=== PATIENT | female | born 1935 | race Caucasian/White ===

== ENCOUNTER 2019-07-16 09:00 | Inpatient (IN) | payer OTHER ==
[~2019-07-16] VITALS: Ht 157.5 cm; Wt 71.6 kg
[~2019-07-16 09:00] MED LIST: ACET-66 PO; ATOR40TA71 PO; FAMO40TA7 PO; FENO160T16 PO; FISH1CAP63 PO; FURO40TA5 PO; ISOS20TA7 PO; LISI-613 PO; MAGN400T40 PO; METO-409 PO; OMEP20TA25 PO
[2019-07-16 09:25] LABS: BASOPHILS % (AUTO) 0.3 % (0.0-5.0); EOSINOPHILS % (AUTO) 5.6 % (0.0-8.0); HEMATOCRIT 43.3 % (36-48); LYMPHOCYTES % (AUTO) 24.7 % (21.0-51.0); MEAN CORPUSCULAR HEMOGLOBIN 26.2 pg (27.0-33.0); MEAN CORPUSCULAR VOLUME 79.3 fL (79-99); MONOCYTES % (AUTO) 18.6 % (3.0-13.0); NEUTROPHILS % (AUTO) 50.8 % (40.0-77.0); NUCLEATED RED BLOOD CELLS 0.1 % (0.0-0.19); PLATELET COUNT (AUTO) 136 K/uL (130-400); RED BLOOD CELL COUNT(AUTO) 5.46 MIL/uL (4.00-5.50); RED CELL DISTRIBUTION WIDTH 17.1 % (11.0-15.5)
[2019-07-16 09:42] LABS: BILIRUBIN,TOTAL 1.9 mg/dL (0.2-1.0); POTASSIUM 3.3 mmol/L (3.5-5.1); TOTAL PROTEIN, SERUM 6.1 g/dL (6.0-8.3)
[2019-07-16 10:42] LABS: BILIRUBIN,URINE Negative (NEGATIVE); COLOR,URINE Dark Yellow (YELLOW); GLUCOSE, URINE (UA) Negative (NEGATIVE); KETONES,URINE Negative (NEGATIVE); LEUKOCYTE ESTERASE ,URINE Moderate (NEGATIVE); NITRATE,URINE Negative (NEGATIVE); OCCULT BLOOD,URINE Negative (NEGATIVE); PH,URINE 6.5 (5.0-8.0); PROTEIN,URINE Negative (NEGATIVE)
[2019-07-16 10:45] LABS: APPEARANCE,URINE SLIGHTLY CLOUDY (CLEAR)
[2019-07-16 11:14] LABS: BACTERIA,URINE Moderate /HPF (None Seen); RBC,URINE None Seen /HPF (0-1)
[2019-07-16] MEDS ORDERED: SODIUM CHLORIDE 0.9% 1000ML 1,000 ML IV ONE (12:01)
[2019-07-16] MEDS ORDERED: MORPHINE SULFATE 2 MG/ML 1ML SYG IVP PRN (12:15)
[2019-07-16] MEDS ORDERED: ONDANSETRON HCL 4 MG/2 ML VIAL IVP PRN (12:15)
--- NOTE | 2019-07-16 16:30 | NUR ---
GROWTH IN GROIN AREA Addendum: 07/16/19 at 1817 by SANDRA EVANGELISTA RN RN Amended: Links added.
[2019-07-16 16:54] VITALS: BP 162/87
[2019-07-16 19:33] LABS: INR 4.29 (0.85-1.15); PROTHROMBIN TIME 43.8 SEC (9.6-11.6)
[2019-07-16 20:00] VITALS: BP 145/61
[2019-07-16] MEDS ORDERED: POTASSIUM CHLORIDE 10% ELIXIR 20 MEQ/15 ML UDCUP PO PRN (20:30)
[2019-07-16] MEDS ORDERED: POTASSIUM CHLORIDE 20MEQ/100ML 100 ML IV PRN (20:30)
[2019-07-16] MEDS ORDERED: LIDOCAINE HCL-MPF 1% 2ML VIAL IV PRN (20:30)
[2019-07-16] MEDS: SODIUM CHLORIDE 0.9% 1000ML 1,000 ML IV SCH (23:05)
[2019-07-16] MEDS: POTASSIUM CHLORIDE 20 MEQ ERTAB PO PRN (23:09)
[2019-07-16 23:33] VITALS: BP 139/69
[2019-07-17] MEDS: POTASSIUM CHLORIDE 20 MEQ ERTAB PO PRN (00:53)
[2019-07-17 03:52] VITALS: BP 138/63
[2019-07-17 06:56] LABS: BASOPHILS % (AUTO) 1.3 % (0.0-5.0); EOSINOPHILS % (AUTO) 0.5 % (0.0-8.0); HEMATOCRIT 39.8 % (36-48); LYMPHOCYTES % (AUTO) 26.6 % (21.0-51.0); MEAN CORPUSCULAR HEMOGLOBIN 26.1 pg (27.0-33.0); MEAN CORPUSCULAR HGB CONC 32.7 g/dL (32.0-36.0); MEAN CORPUSCULAR VOLUME 79.9 fL (79-99); MONOCYTES % (AUTO) 16.6 % (3.0-13.0); NUCLEATED RED BLOOD CELLS 0.1 % (0.0-0.19); PLATELET COUNT (AUTO) 145 K/uL (130-400); RED BLOOD CELL COUNT(AUTO) 4.98 MIL/uL (4.00-5.50); RED CELL DISTRIBUTION WIDTH 17.5 % (11.0-15.5); WHITE BLOOD COUNT (AUTO) 7.9 K/uL (4.8-10.8)
[2019-07-17 07:11] LABS: ALBUMIN 2.7 g/dL (3.5-5.0); BILIRUBIN,TOTAL 2.1 mg/dL (0.2-1.0); CREATININE 0.9 mg/dL (0.5-1.5); POTASSIUM 3.3 mmol/L (3.5-5.1); TOTAL PROTEIN, SERUM 5.6 g/dL (6.0-8.3)
[2019-07-17 07:38] VITALS: BP 149/80
[2019-07-17 09:06] LABS: PROTHROMBIN TIME 36.9 SEC (9.6-11.6)
[2019-07-17 09:07] LABS: INR 3.6 (0.85-1.15)
--- NOTE | 2019-07-17 10:10 | NUR ---
INITIAL MET W PT AND SOUSE AT [facility], PT VERY WEAK, PALE MOUTH BREATHING, FOR POSSIBLE BIOPSY TODAY . LIVES W SPOUSE, 3 STEPS UP TO HOUSEAND RAMP ON ONE SIDE, WALKS W/ WALKER, RECNELY USING W/CHAIR RAPID DECLINE IN ABILITY OVER LAST THREE WEEKS, NOT ABLE TO STAND/ DO ADLS, PREVIOUSLY INDP, BAHTROOM NOT HANDCAPPED EQUIPPED, DOIND ALL CARE; NO HOME HEALTH AT THIS TIME NEW PROBABLE CANCER DX, DR. GILLIS ON CASE, ADVISED PT/SPOUSE THAT NOW THERE IS A LOT OF WAITING, WAITING FOR BIOPSY, AND THEN WAITING FOR RESULT AND THEN WAITING FOR TREATMENT PLAN, AND IT WILL LIKELY BE OUTPATIENT WHICH MEANS TRANSPORT++ ASKED ABOUT FAMILY- DAUGHTER OUT OF STATE, ARRIVING NEXT WEEK' WILL ASK FOR PT/ST/ RD AND POSSIBLE DISCHARGE WITH HOME HEALTH IF OK W . PT FAMILY AND PRIMAY STEPHANIE ADVISED OF TENTATIVE DC PLAN Addendum: 07/17/19 at 1257 by DEVYN QUINN RN CM Amended: Links added.
[2019-07-17] MEDS ORDERED: DEXAMETHASONE SOD PHOSPHATE 4 MG/ML 1ML VIAL IVP SCH (10:45)
[2019-07-17 11:29] VITALS: BP 157/93
[2019-07-17] MEDS: SODIUM CHLORIDE 0.9% 1000ML 1,000 ML IV SCH (12:30)
--- NOTE | 2019-07-17 12:30 | NUR ---
PROCEDURE PATIENT SCHEDULED FOR LT GROIN INGUINAL MASS BIOPSY WITH ELEVATED PT/INR. DR Shazia CRUZ NOTIFIED AND RESCHEDULE FOR TOMORROW WHEN THE LABS HAVE BEEN CORRECTED. PROCEDURE OUTCOME REPORTED TO Arjun TELLEZ LVN.
[2019-07-17] MEDS: DiphenhydrAMINE HCL 50 MG/ML VIAL IV SCH (13:38)
[2019-07-17 15:56] VITALS: BP 155/80
[2019-07-17] MEDS ORDERED: DONE10TA43 PO (17:11)
[2019-07-17] MEDS ORDERED: WARF1TAB83 PO (17:11)
[2019-07-17] MEDS ORDERED: CYAN-52 PO (17:11)
[2019-07-17] MEDS ORDERED: ROSU5TAB12 PO (17:11)
[2019-07-17 19:00] VITALS: BP 162/88
[2019-07-17] MEDS: METOPROLOL TARTRATE 50 MG TAB PO SCH (21:00)
[2019-07-17 23:35] VITALS: BP 146/83
[2019-07-18 04:00] VITALS: BP 143/76
[2019-07-18 05:25] LABS: HEMATOCRIT 39.2 % (36-48); MEAN CORPUSCULAR HEMOGLOBIN 26.5 pg (27.0-33.0); MEAN CORPUSCULAR HGB CONC 33.2 g/dL (32.0-36.0); NUCLEATED RED BLOOD CELLS 0.1 % (0.0-0.19); PLATELET COUNT (AUTO) 151 K/uL (130-400); RED CELL DISTRIBUTION WIDTH 18.1 % (11.0-15.5); WHITE BLOOD COUNT (AUTO) 7.1 K/uL (4.8-10.8)
[2019-07-18 05:42] LABS: ALBUMIN 2.9 g/dL (3.5-5.0); BILIRUBIN,TOTAL 1.8 mg/dL (0.2-1.0); POTASSIUM 3.2 mmol/L (3.5-5.1); TOTAL PROTEIN, SERUM 6.1 g/dL (6.0-8.3)
[2019-07-18 05:43] LABS: INR 2.8 (0.85-1.15); PROTHROMBIN TIME 28.8 SEC (9.6-11.6)
[2019-07-18 07:30] VITALS: BP 157/71
[2019-07-18] MEDS: METOPROLOL TARTRATE 50 MG TAB PO SCH ×2 (09:55→20:04)
[2019-07-18] MEDS: DiphenhydrAMINE HCL 50 MG/ML VIAL IV SCH ×2 (10:45→13:33)
--- NOTE | 2019-07-18 11:00 | NUR ---
DYSPHAGIA EVAL COMPLETED. +S/S WITH THIN, NECTAR AND MIXED TEXTURES. RECOMMEND MECHANICAL SOFT/GROUND, HONEY-THICK LIQUIDS; PILLS CRUSHED WITH APPLESAUCE, NO MIXED TEXTURES. Addendum: 07/18/19 at 1200 by JAYMIE LAGUNAS, [facility] Amended: Links added.
[2019-07-18 11:14] VITALS: BP 147/68
--- NOTE | 2019-07-18 11:52 | NUR ---
PROCEDURE DR Bebeto HOOKER NOTIFIED OF PROCEDURE AT 1000 AND REQUESTED U/S SOFT TISSUE OF LT INGUINAL MASS TO CHECK FOR VASCULARITY. IMAGES TAKEN AND REVIEWED BY DR Bebeto HOOKER. LT INGUINAL MASS IS VERY VASCULAR AND PT/INR ARE STILL ELEVATED. DR HOOKER RECOMMENDED TO CORRECT ELEVATED LABS PRIOR PROCEDURE. PROCEDURE OUTCOME REPORTED TO Arjun TELLEZ LVN
[2019-07-18] MEDS: SODIUM CHLORIDE 0.9% 1000ML 1,000 ML IV SCH (12:30)
[2019-07-18] MEDS: DEXAMETHASONE SOD PHOSPHATE 4 MG/ML 1ML VIAL IVP SCH (13:33)
[2019-07-18] MEDS: PHYTONADIONE 10 MG/1 ML AMP SQ SCH (13:33)
--- NOTE | 2019-07-18 15:15 | NUR ---
RD NOTIFICATION PRIMARY DIAGNOSIS: LEFT HIP MASS. HX: DEMENTIA, HTN. BMI IS 28.9, CLASSIFIED OVERWEIGHT. CURRENT DIET: REGULAR, MECHANICAL SOFT/ GROUND/ HONEY THICK LIQUIDS. PO 0% PER PT . MEDS: DEXAMETHASONE, BENADRYL, POTASSIUM CHLORIDE, LOPRESSOR. LABS: PT 28.8, INR 2.8, Na 152, K 3.2, GFR 56, AST 38, ALT 11, ALB 2.9. PT HAS BEEN TAKING WARFARIN MEDICATION AT HOME FOR MANY YEARS NOW PER . PT HAS POOR APPETITE X3 DAYS, SEEMED VERY CONCERNED AND SAYS THAT PT PLAYS WITH HER FOOD BUT WONT EAT. THIS HAS BEEN GOING ON FOR SOME TIME NOW. PT UBW IS 180# AND NOW 157#. RD RECOMMENDS TO CONTINUE CURRENT DIET, OFFER ENSURE AT ALL MEALS. RECOMMEND APPETITE STIMULANT TO IMPROVE PO INTAKE DUE TO SEVERE PROTEIN CALORIE MALNUTRITION STATUS. IF PO INTAKE DOES NOT IMPROVE, CONSIDER ALTERNATE MEANS OF NUTRITION. RD PROVIDED WARFARIN AND VITAMIN K NUTRITION THERAPY EDUCATION. WAS EAGER TO LEARN, ASKED QUESTIONS, RD ANSWERED AND VERBALIZED UNDERSTANDING. RD WILL CONTINUE TO MONITOR AND FOLLOW UP NEEDED. PLEASE NOTIFY RD IF ANY OTHER NUTRITIONAL CONCERNS ARISE. THANK YOU! Addendum: 07/18/19 at [address] Amended: Links added.
--- NOTE | 2019-07-18 15:17 | NUR ---
WARFARIN EDUCATION ARABELLA PROVIDED WARFARIN AND VITAMIN K NUTRITION THERAPY EDUCATION. WAS EAGER TO LEARN, ASKED QUESTIONS, RD ANSWERED AND VERBALIZED UNDERSTANDING. Addendum: 07/18/19 at [address] Amended: Links added.
[2019-07-18 16:00] VITALS: BP 149/75
[2019-07-18 17:27] LABS: INR 2.89 (0.85-1.15); PROTHROMBIN TIME 29.7 SEC (9.6-11.6)
--- NOTE | 2019-07-18 17:49 | NUR ---
CALLED DR. MCKENZIE REGARDING INR RESULTS OF 2.8 AFTER 1 UNIT FFP AND VITAMIN 10MG. MESSAGE LEFT, NO ANSWER AT THIS TIME. Addendum: 07/18/19 at 1801 by JOAN TELLEZ LVN LVN RESULTS OF 2.89
[2019-07-18] MEDS ORDERED: PHYTONADIONE 10 MG in SODIUM CHLORIDE 0.9% 50 ML IV SCH (19:00)
[2019-07-18] MEDS ORDERED: DEXAMETHASONE SOD PHOSPHATE 4 MG/ML 1ML VIAL IVP SCH (19:00)
[2019-07-18] MEDS ORDERED: DiphenhydrAMINE HCL 50 MG/ML VIAL IV SCH (19:00)
[2019-07-18] MEDS ORDERED: LACTULOSE 20 GM/30 ML UDCUP PO PRN (19:45)
[2019-07-18 20:00] VITALS: BP 161/86
[2019-07-18 23:54] VITALS: BP 138/88
[2019-07-19 03:31] VITALS: BP 159/86
[2019-07-19 05:00] LABS: HEMATOCRIT 38.6 % (36-48); MEAN CORPUSCULAR HEMOGLOBIN 26.1 pg (27.0-33.0); MEAN CORPUSCULAR HGB CONC 32.5 g/dL (32.0-36.0); MEAN CORPUSCULAR VOLUME 80.3 fL (79-99); PLATELET COUNT (AUTO) 198 K/uL (130-400); RED CELL DISTRIBUTION WIDTH 17.8 % (11.0-15.5); WHITE BLOOD COUNT (AUTO) 10.2 K/uL (4.8-10.8)
[2019-07-19 05:07] LABS: INR 1.33 (0.85-1.15); PROTHROMBIN TIME 13.9 SEC (9.6-11.6)
[2019-07-19 05:13] LABS: ALBUMIN 3.1 g/dL (3.5-5.0); BILIRUBIN,TOTAL 1.7 mg/dL (0.2-1.0); POTASSIUM 3.3 mmol/L (3.5-5.1); TOTAL PROTEIN, SERUM 6.5 g/dL (6.0-8.3)
[2019-07-19 07:42] VITALS: BP 159/93
--- NOTE | 2019-07-19 08:10 | NUR ---
NOTE SLEEPING. AROUSED TO VERBAL STIMULI. AT HER SIDE. ORIENTED TO NAME ONLY. SPEECH CLEAR BUT DOES NOT ANSWER QUESTIONS APPROPRIATELY. SHE HAS H/O DEMENTIA. BBS CLEAR TO UPPER DIMINISHED TO LOWER. POOR APPETITE. SHE IS ON MODIFIED DIET. SHE IS PENDING BIOPSY BECAUSE HER INR WAS ELEVATED. SHE HAS LARGE LEFT INGUINAL MASS. APPEARS PURPLISH DISCOLORATION TO SITE AND PALPABLE. LLE SWELLING PRESENT, NO PITTING EDEMA.
[2019-07-19] MEDS: METOPROLOL TARTRATE 50 MG TAB PO SCH ×2 (10:28→20:17)
[2019-07-19] MEDS: DiphenhydrAMINE HCL 50 MG/ML VIAL IV SCH ×2 (10:45→12:00)
[2019-07-19 10:56] VITALS: BP 155/88
--- NOTE | 2019-07-19 11:33 | NUR ---
SWALLOW TREATMENT COMPLETED. RECOMMEND: PUREED, HONEY-THICK LIQUIDS; PILLS CRUSHED. DIETARY CONSULT. S: Pt SEATED AT 90 DEGREES IN BED WITH AT BEDSIDE. Pt COOPERATIVE WITH COAXING PROVIDED. REPORTS Pt HAS HAD LOW P.O. AT THIS TIME. O: Pt CURRENTLY TARGETING SWALLOWING GOALS. RESULTS ARE FOLLOWS: COMPLETED THERAPEUTIC TRIALS OF PUREED AND HONEY-THICK LIQUIDS X5 WITH NO OVERT S/S OF ASPIRATION. LARYNGEAL ELEVATION/EXCURSION EXERCISES WITH 60% ACCURACY GIVEN MAX CUES TONGUE BASE RETRACTION EXERCISES GIVEN MAX CUES WITH 50% ACCURACY. A: PT WITH DECREASED ORAL MOTOR ABILITIES AT THIS TIME AND POOR P.O. DIETARY CONSULT RECOMMENDED. P: RECOMMEND CONTINUED SKILLED SPEECH THERAPY 3-5XWK FOR 4WKS. DIET DOWNGRADE TO PUREED, HONEY-THICK LIQUIDS. RESIDENTIAL PROGRAM DIRECTOR COORDINATED CARE WITH NURSE POWELL. HE VERBALIZED AGREEMENT AND COMPLIANCE WITH RECOMMENDATIONS. Addendum: 07/19/19 at 1145 by JAYMIE LAGUNAS [facility] Amended: Links added.
--- NOTE | 2019-07-19 11:40 | NUR ---
U/S GUIDED BX LEFT INGUINAL MASS PROCEDURE PERFORMED BY DR. ST. PUNCTURE SITE LEFT INGUINAL AREA. PATIENT TOLERATED PROCEDURE WELL. SPECIMEN X 5 COLLECTED AND SENT TO LAB. END OF PROCEDURE AT 1145. BIOPSY NEEDLE REMOVED, PRESSURE HELD FOR 5 MINUTES AND DRESSING APPLIED. NO BLEEDING NOTED. REPORT GIVEN TO STEPHANIE ABERNATHY. PATIENT TRANSPORTED TO 410 VIA BED. PT STABLE, AWAKE, ALERT, DISORIENTED TO TIME AND PLACE. DENIES ANY PAIN.
[2019-07-19] MEDS: DEXAMETHASONE SOD PHOSPHATE 4 MG/ML 1ML VIAL IVP SCH (12:00)
[2019-07-19] MEDS: PHYTONADIONE 10 MG/1 ML AMP SQ SCH (12:00)
[2019-07-19] MEDS: SODIUM CHLORIDE 0.9% 1000ML 1,000 ML IV SCH (12:30)
--- NOTE | 2019-07-19 13:00 | NUR ---
NOTE BACK FROM BIOPSY DONE IN I.R. STABLE NO CHANGE IN OVERALL CONDITION. DRESSING TO LEFT GROIN TO BIOPSY SITE D/I. VS STABLE.
--- NOTE | 2019-07-19 13:59 | NUR ---
RD Follow Up Pt remains with Poor PO intake (25%), Rec to add appetite stimulant. Pt to be downgraded to Puree diet as per BUCKLE ATTACHER. Pt with HTL in place, Rec Ensure TID modified to HTL texture. Pt LBM 07/15/19. Pt monitored labs: Na 150, K 3.3, BUN 19, GFR 56, Glu 140, Ca 12.7, T. Bili 1.7, Alb 3.1. RD to continue to monitor. Please notify RD as additional nutrition concerns arise. Thank you. Addendum: 07/19/19 at [address] Amended: Links added.
--- NOTE | 2019-07-19 15:00 | NUR ---
cm note called by pt's spouse to discuss dc planning, states he does not feel he can manage pt at home, with her current weakened state. prefers to try and see if she qualifies for snf, call made to dr verma and discussed case, new orders received, spouse signed choice letter, and states any in network provider is fine. [facility] she has been there before. referral faxed to [facility], pending evaluation. spoke to naren martinez will come and evaluate. informed spouse that if she does not qualify then he may need to private pay for sitter or NH placement, he states will deal with that if denied. by snf,
--- NOTE | 2019-07-19 15:00 | NUR ---
NOTE REMAINS STABLE. NO CHANGE IN LOC. AT HER SIDE. CASE MANAGEMENT SPOKE TO THEM ABOUT SNF PLACEMENT. DR MCKENZIE HAD ORDERED DC HOME BUT WILL STAY FOR PLACEMENT BECAUSE STATES HE CANNOT TAKE CARE OF HER AT HOME ANYMORE.
[2019-07-19 16:33] VITALS: BP 149/88
[2019-07-19 19:17] VITALS: BP 129/90
[2019-07-19] MEDS: POTASSIUM CHLORIDE 20 MEQ ERTAB PO PRN (20:20)
[2019-07-19 23:58] VITALS: BP 145/79
[2019-07-20] VITALS (7 sets, daily range): BP systolic 137–157; BP diastolic 65–86
[2019-07-20] MEDS: POTASSIUM CHLORIDE 20 MEQ ERTAB PO PRN ×3 (01:02→16:36)
[2019-07-20] MEDS: METOPROLOL TARTRATE 50 MG TAB PO SCH ×2 (08:46→20:14)
[2019-07-20] MEDS: DiphenhydrAMINE HCL 50 MG/ML VIAL IV SCH ×2 (10:45→12:00)
--- NOTE | 2019-07-20 11:00 | NUR ---
NOTE DR HEARN MADE ROUNDS AND RECOMMENDS STARTING PATIENT ON ELIQUIS 5MG BID FOR HER CHRONIC AFIB IF OKAY WITH DR MCKENZIE. YULY FRANK MD.
[2019-07-20] MEDS: DEXAMETHASONE SOD PHOSPHATE 4 MG/ML 1ML VIAL IVP SCH (12:00)
[2019-07-20] MEDS: PHYTONADIONE 10 MG/1 ML AMP SQ SCH (12:00)
[2019-07-20] MEDS: SODIUM CHLORIDE 0.9% 1000ML 1,000 ML IV SCH (12:30)
[2019-07-20] MEDS: APIXABAN 5 MG TABLET PO SCH ×2 (15:05→20:11)
--- NOTE | 2019-07-20 18:28 | NUR ---
STABLE. SLEEPS ALL DAY. WAS AROUSABLE ENOUGH TO EAT WITH ASSISTANCE. WAS STARTED ON ELIQUIS PER DR HEARN'S ORDERS AND DR MCKENZIE AGREED WITH IT. SHE WILL BE FOR SURE HERE UNTIL MONDAY WHEN WE WILL FIND OUT IF SHE WILL BE ACCEPTED TO [facility].
[2019-07-21 03:30] VITALS: BP 153/76
[2019-07-21] MEDS: POTASSIUM CHLORIDE 20 MEQ ERTAB PO PRN ×3 (06:56→22:19)
[2019-07-21 08:26] VITALS: BP 142/72
[2019-07-21] MEDS: METOPROLOL TARTRATE 50 MG TAB PO SCH ×2 (09:10→21:25)
[2019-07-21] MEDS: APIXABAN 5 MG TABLET PO SCH ×2 (09:10→21:25)
[2019-07-21 11:53] VITALS: BP 146/82
[2019-07-21] MEDS: PHYTONADIONE 10 MG/1 ML AMP SQ SCH (12:00)
[2019-07-21] MEDS: SODIUM CHLORIDE 0.9% 1000ML 1,000 ML IV SCH (12:30)
[2019-07-21 16:22] VITALS: BP 152/89
--- NOTE | 2019-07-21 18:42 | NUR ---
NOTE HAS BEEN STABLE. NO DISTRESS OR SOB. SLEEPS WITH MOUTH OPEN ALL THE TIME. SHE IS ON MODIFIED DIET. SPEECH THERAPY WORKING WITH HER. NO N/V NO OTHER PROBLEMS. SHE IS INCONTINENT, WEARS BRIEFS. LAST BM TODAY. SHE IS S/P LEFT INGUINAL MASS BIOPSY MONDAY AND SHE IS FOR DC PLANNING TO HALF-WAY TOMORROW IF ACCEPTED. SMALL DRESSING TO LEFT INGUINAL MASS D/I.
[2019-07-21 19:23] VITALS: BP 149/88
[2019-07-21 23:19] VITALS: BP 134/76
[2019-07-22 03:47] VITALS: BP 147/88
[2019-07-22] MEDS: PHYTONADIONE 10 MG/1 ML AMP SQ SCH (07:27)
[2019-07-22 08:10] VITALS: BP 143/68
[2019-07-22] MEDS: METOPROLOL TARTRATE 50 MG TAB PO SCH ×2 (09:27→21:12)
[2019-07-22] MEDS: APIXABAN 5 MG TABLET PO SCH ×2 (09:28→21:12)
--- NOTE | 2019-07-22 10:58 | NUR ---
FOLLOW UP COMPLETED. Pt WITH IMPROVED P.O. REQUIRING ASSISTANCE FOR P.O. Pt CURRENTLY ON PUREED, HONEY-THICK LIQUIDS. RECOMMEND CONTINUED P.O. WITH ASSISTANCE. Pt SLEEPING DURING VISIT. RECOMMEND CONTINUED SKILLED SPEECH THERAPY TOLERATED BY Pt. Addendum: 07/22/19 at 1103 by JAYMIE LAGUNAS, SPT ST Amended: Links added.
[2019-07-22 11:15] VITALS: BP 140/93
[2019-07-22] MEDS: SODIUM CHLORIDE 0.9% 1000ML 1,000 ML IV SCH (12:30)
--- NOTE | 2019-07-22 13:29 | NUR ---
CM Note: [facility] ins auth and acceptance CM spoke to Tanja green/Jef Alonso, pt has ins auth and acceptance. EMS arranged and faxed for today, primary nurse to call [facility] once pt ready to DC. Primary nurse aware. CM to cont to follow up.
--- NOTE | 2019-07-22 15:00 | NUR ---
Rec'd notice from CM Lily that pt had been accepted to [facility], call placed to Efren Benjamin to notify. Message left on voice mail. Awaiting callback. Family stated that during his rounds today, Dr. Schwartz told them pt needs to await final results of biopsy and won't be discharged until tomorrow.
[2019-07-22 16:37] VITALS: BP 135/66
[2019-07-22 20:00] VITALS: BP 161/91
[2019-07-23] VITALS: BP 133/70
[2019-07-23 04:00] VITALS: BP 141/82
[2019-07-23 07:30] VITALS: BP 150/97
[2019-07-23] MEDS: PHYTONADIONE 10 MG/1 ML AMP SQ SCH (10:46)
[2019-07-23] MEDS: APIXABAN 5 MG TABLET PO SCH (10:46)
[2019-07-23] MEDS: METOPROLOL TARTRATE 50 MG TAB PO SCH (10:46)
[2019-07-23 11:00] VITALS: BP 139/65
[2019-07-23] MEDS: SODIUM CHLORIDE 0.9% 1000ML 1,000 ML IV SCH (12:30)
--- NOTE | 2019-07-23 14:25 | NUR ---
DISCHARGE INSTRUCTIONS GIVEN AND EXPLAINED UTILIZING TEACH BACK METHOD, PT AND FAMILY VERBALIZED UNDERSTANDING. MK LUJAN MADE AWARE OF OOHDNR. FAMILY AWARE OF HAVING DR. MCKENZIE SIGN. WILL CONTINUE TO FOLLOW UP. Addendum: 07/23/19 at 1637 by TOMAS WEBBER RN REPORT CALLED TO STEPHANIE ELIAS PRIOR TO DISCHARGE, VERBALIZED UNDERSTANDING.
--- NOTE | 2019-07-23 15:27 | NUR ---
RD Follow Up Pt tolerating Heart Healthy Puree Diet as per Pt family. Honey-Thickened liquids in Diet order. Family states Pt likes Mashed Potatoes, puddings, applesauce with meals, Cream of wheat at breakfast. Pt PO intake at 75%. Pt LBM 07/21/19. No report of GI distress. RD to continue to monitor. Pt to discharge today as per family. Addendum: 07/23/19 at [address] Amended: Links added.
--- NOTE | 2019-07-23 15:47 | NUR ---
OOHDNR Sw met with spouse and completed a OOHDNR. Family to have Dr Schwartz sign form and give copy to NH.
[2019-07-23 16:00] VITALS: BP 150/70
== END 2019-07-23 18:10 | DRG 824 ==
LOC: EDH 09:00 → EDHIP 11:52 → OBSVTOIN 11:52 → 4BH 16:50
PROVIDERS: ADMIT Internal Medicine Hematology & Oncology; ATTEND Internal Medicine Hematology & Oncology
PROC: 30233K1 Transfusion of Nonautologous Frozen Plasma into Peripheral Vein, Percutaneous Approach (ICD-10-PCS; 2019-07-17)
PROC: 07BJ3ZX Excision of Left Inguinal Lymphatic, Percutaneous Approach, Diagnostic (ICD-10-PCS; principal; 2019-07-19)
DX: C83.35 Diffuse large B-cell lymphoma, lymph nodes of inguinal region and lower limb (principal); I48.1 Persistent atrial fibrillation; D68.9 Coagulation defect, unspecified; T45.515A Adverse effect of anticoagulants, initial encounter; E78.5 Hyperlipidemia, unspecified; F03.90 Unspecified dementia, unspecified severity, without behavioral disturbance, psychotic disturbance, mood disturbance, and anxiety; I10 Essential (primary) hypertension; I25.10 Atherosclerotic heart disease of native coronary artery without angina pectoris; I27.20 Pulmonary hypertension, unspecified; W18.30XA Fall on same level, unspecified, initial encounter; R63.4 Abnormal weight loss; I34.0 Nonrheumatic mitral (valve) insufficiency; Z66 Do not resuscitate; Y92.009 Unspecified place in unspecified non-institutional (private) residence as the place of occurrence of the external cause; Z74.01 Bed confinement status; Z79.01 Long term (current) use of anticoagulants; Z91.19 Patient's noncompliance with other medical treatment and regimen; Z95.0 Presence of cardiac pacemaker; Z95.1 Presence of aortocoronary bypass graft; Y93.89 Activity, other specified; Y99.8 Other external cause status; Z68.28 Body mass index [BMI] 28.0-28.9, adult
CPT/HCPCS: 36415; 36430; 38505; 70450; 71250; 72125; 74176; 76882; 76942; 80053; 81001; 84132; 85025; 85027; 85610; 86850; 86900; 86901; 86927; 88307; 92526; 92610; 93005; 93306; 97039; G0378; J1100; J1200; J3430; J3480; J3490; J7030; P9017